=== PATIENT | female | born 1990 | race Caucasian/White ===

== ENCOUNTER 2017-10-03 15:54 | Emergency (ER) | payer MEDICAID ==
--- NOTE | 2017-10-03 16:14 | EDPHY ---
H & P Time Seen by Provider: 10/03/17 15:58 HPI/ROS: CHIEF COMPLAINT: Paranoia HISTORY OF PRESENT ILLNESS: The patient is a 27 y/o female with a history of schizophrenia and bipolar disorder arriving via AMS from [facility] for paranoia. Patient was seen at [facility] and referred to the emergency department for medical clearance and for placement. She was seen at [facility] earlier this fall, where they gave her medications for her mental illnesses. 3 weeks ago she ran out of these medications and did not refill them. For the past week she has felt like she is "processing things different than others". States she is having "feeling" hallucinations and is able to have "mind feel". Today she was at [facility] when they advised her to go to the ED for her paranoia. She also feels dehydrated. In the past she was prescribed [place] for her bipolar disorder, but took herself off of it. Admits to smoking and drinking today. No illicit drug use. Does not feel like people are out to get her. Denies suicidal or homicidal ideation. Denies seeing a therapist or psychiatrist recently. No fever, chills, chest pain, shortness of breath, palpitations, abdominal pain, vomiting, diarrhea, urinary complaints, headache, lightheadedness. REVIEW OF SYSTEMS: Aside from elements discussed in the HPI, a comprehensive 10-point review of systems was reviewed and is negative. PAST MEDICAL HISTORY: Schizophrenia, bipolar disorder, anxiety SOCIAL HISTORY: Lives in [place], tobacco and alcohol use VITAL SIGNS: Reviewed by me GENERAL: Well-developed, well-nourished, resting comfortably in no respiratory distress. HEENT: Atraumatic. Eyes: No icterus, no injection. Mouth: moist mucous membranes. No erythema or lesions. Neck: supple with no adenopathy. LUNGS: Clear to auscultation bilaterally, no wheezes, rhonchi or rales. CARDIAC: Regular rate and rhythm, no rubs, murmurs or gallops. ABDOMEN: Soft, nontender, nondistended, bowel sounds normal. BACK: No CVA tenderness. EXTREMITIES: No trauma. No edema. Range of motion is normal throughout. NEURO: Alert and oriented, grossly nonfocal. SKIN: Warm and dry, no rash. PSYCHIATRIC: Controlled thought, thought disturbance, paranoid, no agitation. Portions of this note were transcribed by a emergency medical technician. I personally performed a history, physical exam, medical decision making, and confirmed accuracy of information the transcribed note. (Kimberli Kathleen) Constitutional: Initial Vital Signs Temperature (C) 37.0 C 10/03/17 16:35 Heart Rate 100 10/03/17 16:35 Respiratory Rate 16 10/03/17 16:35 Blood Pressure 167/98 H 10/03/17 16:35 O2 Sat (%) 97 10/03/17 16:35 O2 Delivery Mode Room Air Allergies/Adverse Reactions: No Known Allergies Allergy (Unverified 10/03/17 16:30) Home Medications: Medication Instructions Recorded Divalproex 10/03/17 Risperdal 10/03/17 traZODone 10/03/17 Medical Decision Making ED Course/Re-evaluation: The patient is a 27 y/o female with a history of mental illness, arriving via EMS from [facility], for paranoia. On exam she has controlled thought, thought disturbance, and paranoia. Patient was medically cleared. [facility] was contacted. They will begin a bed search. [id number]: Reassessed patient, her nurse reports that [facility] is trying to find a placement for her. She has been cooperative and calm. She understands that she needs to stay here while her placement with [facility] is pending. Her care has been turned over to Dr. Patino at shift change, pending placement. (Kimberli Kathleen) 7:00 a.m.- Patient has been stable throughout my shift. She is currently awaiting placement. Anticipate the case will be signed out to Dr. Ann pending placement. (Gisele Cheema) I assumed care of this patient from Dr. Cheema at 7 AM. Placement obtained, EMTALA signed, transfer arranged. (Matilde Ann) Differential Diagnosis: Differential diagnoses for the patient's symptom complex was considered including but not limited to schizophrenia, bipolar disorder, acute paranoia, acute psychosis, drug or alcohol abuse, drug or alcohol withdrawal. (Kimberli Kathleen) - Data Points Laboratory Results: Laboratory Results 10/03/17 16:40 10/03/17 16:40 Medications Given: Discontinued Medications Nicotine (Nicoderm Cq) 14 mg TD EDNOW ONE Stop: 10/05/17 11:09 Last Admin: 11/14/17 11:29 Dose: 14 mg Departure - Departure Disposition: [facility] Clinical Impression: Paranoid Condition: Good Referrals: Patient,NotPresent [Unknown] - As per Instructions Report Scribed for: Kimberli Kathleen Report Scribed by: Bebe Davalos Date of Report: 10/03/17 Time of Report: 16:17
[2017-10-03 16:52] LABS: % IMMATURE GRANULYOCYTES 0.5 % (0.0-1.1); ABSOLUTE IMMATURE GRANULOCYTES 0.04 10^3/uL (0.00-0.10); ADD DIFF? NO; ADD MORPH? NO; ADD SCAN? NO; ATYPICAL LYMPHOCYTE FLAG 10 (0-99); FRAGMENT RBC FLAG 0 (0-99); HEMATOCRIT 38.9 % (38.0-47.0); HEMOGLOBIN 13.3 g/dL (12.6-16.3); LEFT SHIFT FLG 0 (0-99); LIPEMIA HEMOLYSIS FLAG 90 (0-99); MEAN CELL HEMOGLOBIN 26.1 pg (27.9-34.1); MEAN CELL HEMOGLOBIN CONCENTR. 34.2 g/dL (32.4-36.7); MEAN CELL VOLUME 76.4 fL (81.5-99.8); PLATELET CLUMPS FLAG 0 (0-99); PLATELET COUNT 256 10^3/uL (150-400); RED BLOOD CELL COUNT 5.09 10^6/uL (4.18-5.33); RED CELL DISTRIBUTION WIDTH 13.4 % (11.5-15.2)
[2017-10-03 17:11] LABS: ANION GAP 14 mEq/L (8-16); CALCIUM 9.2 mg/dL (8.5-10.4); CARBON DIOXIDE 25 mEq/l (22-31); CHLORIDE 101 mEq/L (97-110); CREATININE 0.8 mg/dL (0.6-1.0); GLOMERULAR FILTRATION RATE > 60; GLUCOSE 85 mg/dL (70-100); POTASSIUM 3.6 mEq/L (3.5-5.2); SALICYLATE < 1.0 mg/dL (2.0-20.0); SODIUM 140 mEq/L (134-144)
[2017-10-03 23:31] VITALS: TEMP 97.9
[2017-10-04 12:51] VITALS: BP 142/68; PULSE 84; RESP 12; O2SAT 95
[2017-10-05] MEDS ORDERED: NICOTINE 14 MG/24 HR PATCH TD ONE (11:08)
== END 2017-10-04 12:49 | disposition short-term general hospital (02) ==
LOC: EDUNIT#
DX: F22 Delusional disorders (principal)
CPT/HCPCS: 80305; G0480

== ENCOUNTER 2019-02-11 10:19 | Emergency (ER) | payer MEDICAID ==
--- NOTE | 2019-02-11 10:54 | EDPHY ---
General Time Seen by Provider: 02/11/19 10:29 Narrative: CLINICAL IMPRESSION: Acute anxiety, possible early manic episode ASSESSMENT/PLAN: 28-year-old female with reported past medical history of bipolar disease, recently started on medications 3 days ago, presents to the ED voluntarily with her and family for concerns of increased anxiety, pacing, trouble sleeping, and feeling as though medications are not working. Initially patient told me she had no physical complaints, denied intoxication and illicit drug abuse and that she was not concerned about . She was medically cleared and evaluated by [facility] provider whom she told "I am just worried that I am and not able to take my medications". She is established with [facility], reportedly has an appointment in 2 months, and was unaware of the fact that she could go to their 13/06 walk-in crisis Center. She denies suicidal and homicidal ideations, has no reports of hallucinations or delusions, is not acting paranoid, does not appear gravely disabled, and has no clinical indication for M1 hold or inpatient psychiatric placement. She is very anxious for discharge and does not wish to wait urine test. We will contact her if this is positive. I encouraged her to restart her medications as prescribed and follow up with [facility] tomorrow. Patient and family are comfortable with this plan and they feel comfortable bringing the patient home. Warning signs return to ED sooner outlined and discharge. DIFFERENTIAL DX: Differential includes but not limited to, acute/chronic psychosis, severe depression, suicidal or homicidal ideations, grave disability, failure to thrive , medication noncompliance, medication side effect, alcohol intoxication and illicit drug use, metabolic disturbance, electrolyte imbalance ED PROCEDURES: See lab and/or imaging results below ED COURSE: 10:45 a.m.:. Patient seen and assessed by myself. Calm, cooperative, here voluntarily. Plan for urine and breath and TLC evaluation 11:45 a.m.: TLC provider here to evaluate patient 12:00 p.m.:. Patient apparently told TLC provider that she is concerned she could be and that she would like a test to make sure that she can still take her medications. It is not felt that patient meets criteria for M1 hold or inpatient admission. She is safe, family feel safe taking her home, she is not a threat to herself or others. CHIEF COMPLAINT: Possible bipolar HPI: 28-year-old [place]ad[place] female presents to the emergency department with her for concerns of possible bipolar and anxiety. Patient reports that she was diagnosed with bipolar disease in 2014, prescribed Risperdal and trazodone by a [facility] but only took this for 1 month and reports her symptoms seem to improve. Over the last week and a half she has become symptomatic again with bouts of anxiety, difficulty sleeping, pacing around the house, and feeling confused. They were seen at [facility] 4 days ago and prescribed Risperdal and trazodone by the ED physician. They have a follow-up appointment with [facility] in 2 months. Patient states the medication it does not seem to be helping. She states the only thing that does seem to help is taking a couple sips of alcohol with her medication. She does not drink alcohol heavily. Patient also reports suffering from depression after delivering both her 7-year-old daughter and her [id number] son. Apparently shortly after each delivery, she was admitted to [facility] and prescribed an unknown medication that she also took for only 1 month. However she reports her was relatively uncomplicated and she feels as though things are going well at home now. Her agrees with this. 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 She denies illicit drug abuse. She reports a family history of mental health illness but is unable to expand on this. She is not feeling suicidal or homicidal. PAST MEDICAL HISTORY: Reported bipolar disease, schizophrenia, depression See nurse/triage notes for additional history if applicable Pertinent Past Surgical History: None reported Family History: Possible family history of mental health illness Social History: , here with her , has 2 children age 7 and 19 months, currently on Medicaid, previously followed by [facility]. REVIEW OF SYSTEMS: All other systems negative Constitutional: No fever, no chills, appetite change. Eyes: No discharge, vision change ENT: No sore throat, congestion, ear pain. Cardiovascular: No chest pain, no palpitations. Respiratory: No cough, no shortness of breath. Gastrointestinal: No abdominal pain, no vomiting, diarrhea. Genitourinary: No hematuria, dysuria, flank pain, pelvic pain Musculoskeletal: No back pain, joint swelling, joint pain, myalgias. Skin: No rashes, color change. Neurological: No headache, dizziness, weakness, positive for confusion. PHYSICAL EXAM: General Appearance: Alert, oriented, appropriate, cooperative, NAD, well hydrated, non-toxic appearing, tachycardic, hypertensive, answering all questions no hypoxia. HEENT: Oropharynx clear is no erythema or exudates, no tonsillar hypertrophy or asymmetry. Dentition without abnormality.] Eyes: PERRLA, no acute vision change, nystagmus, swelling, discharge, pain or photosensitivity. Conjunctiva pink, no pallor or injection Neck: Supple, nontender, no lymphadenopathy, no midline pain, FROM, no meningismus. Respiratory: There are no retractions, lungs are clear to auscultation. Cardiac: Tachycardic, regular rhythm, no murmurs or gallops. Gastrointestinal: [Abdomen is soft, nontender Neurological: [ Alert and oriented x 3 Skin: Warm, dry, no rashes, no nodules on palpation. Psychiatric: Patient is oriented X 3, there is no agitation. Intermittently confused about my questions, states that she is but that her is not her brother. Denies SI and HI. MEDICAL DECISION MAKING: Patient was seen independently. Secondary supervising physician at time of evaluation was Dr. Pedersen . Diagnosis: Anxiety, possible early manic episode with a history of bipolar disease . New, requires workup Summary: See Assessment and Plan for summary of ED visit Clinical lab tests: ordered / reviewed. Discussed patient with another provider: [facility] provider Patient Progress: Stable for discharge. - History Smoking Status: Current every day smoker - Objective Vital Signs: Initial Vital Signs Temperature (C) 36.6 C 02/11/19 10:22 Heart Rate 117 H 02/11/19 10:22 Respiratory Rate 16 02/11/19 10:22 Blood Pressure 153/113 H 02/11/19 10:22 O2 Sat (%) 98 02/11/19 10:22 O2 Delivery Mode Room Air Allergies/Adverse Reactions: No Known Allergies Allergy (Unverified 10/03/17 16:30) Home Medications: Medication Instructions Recorded Divalproex 10/03/17 Risperdal 10/03/17 traZODone 10/03/17 Laboratory Results: 02/11/19 02/11/19 11:01 11:01 Urine Test NEGATIVE Urine Opiates Screen NEGATIVE (NEGATIVE) Urine Barbiturates NEGATIVE (NEGATIVE) Ur Phencyclidine Scrn NEGATIVE (NEGATIVE) Ur Amphetamine Screen NEGATIVE (NEGATIVE) U Benzodiazepines Scrn NEGATIVE (NEGATIVE) Urine Cocaine Screen NEGATIVE (NEGATIVE) U Marijuana (THC) Screen NEGATIVE (NEGATIVE) Departure - Departure Disposition: Home, Routine, Self-Care Clinical Impression: Anxiety Condition: Good Instructions: Anxiety (ED) Additional Instructions: DISCHARGE INSTRUCTIONS FROM YOUR DOCTOR Thank you for visiting our emergency department today. You were treated by a physician marketing communications assistant today and your case was reviewed with our ED Attending physician. Please keep in mind that discharge from the emergency department does not mean that there is nothing wrong - it simply means that we have not identified an emergency condition that requires further evaluation or treatment in the hospital. You should always plan to follow up with primary care for re- evaluation of your condition in the next 2-3 days. If you have been referred to a specialist, please call as soon as possible (today or tomorrow) to schedule your follow up appointment at the appropriate time. YOU MET WITH OUR PSYCH TRIAGE PROVIDER TODAY. YOUR URINE TEST IS NEGATIVE. PLEASE TAKE THE MEDICATIONS THAT WERE PRESCRIBED TO YOU AND GO TO THE WALK IN CRISIS CENTER AT [facility] TOMORROW. PLEASE RETURN TO THE ER IMMEDIATELY IF YOU FEEL UNSAFE TO YOURSELF OR OTHERS, FEEL SUICIDAL OR HOMICIDAL, HAVING AUDITORY OR VISUAL HALLUCINATIONS, FEELING PARANOID OR HAVING WORSENING SYMPTOMS OR ANY OTHER CONCERNS. People present with illnesses and injuries in different ways, and it is always possible that we have missed something. You may always return for re-evaluation if symptoms worsen or if they are not improving or if you develop new/different symptoms. Again, thank you for choosing our emergency department. We hope that you feel better. Referrals: NONE *PRIMARY CARE P,. [Primary Care Provider] - As per Instructions [facility] [Clinic] - 1 day without fail
[2019-02-11 12:17] VITALS: BP 146/97
== END 2019-02-11 12:23 | disposition home or self-care (01) ==
DX: F41.9 Anxiety disorder, unspecified (principal); F31.9 Bipolar disorder, unspecified; Z79.899 Other long term (current) drug therapy
CPT/HCPCS: 80305

== ENCOUNTER 2019-02-12 11:22 | Emergency (ER) | payer MEDICAID ==
--- NOTE | 2019-02-12 11:32 | EDPHY ---
H & P Time Seen by Provider: 02/12/19 11:26 HPI/ROS: CHIEF COMPLAINT: Bipolar HISTORY OF PRESENT ILLNESS: Patient is a 28-year-old female with a history of bipolar who is currently experiencing a manic episode. She presented to the walk-in clinic [facility]. She states that she has not slept well in 2 weeks. She states that she is occasionally hearing voices. She was evaluated there and placed on a hold and brought here for medical clearance. They have already began looking for placement. She denies suicidal homicidal ideation. She denies recent substance abuse. Severity: Moderate Modifying factors: None REVIEW OF SYSTEMS: Constitutional: denies: chills, fever, recent illness, recent injury EENTM: denies: blurred vision, double vision, nose congestion Respiratory: denies: cough, shortness of breath Cardiac: denies: chest pain, irregular heart rate, lightheadedness, palpitations Gastrointestinal/Abdominal: denies: abdominal pain, diarrhea, nausea, vomiting, blood streaked stools Genitourinary: denies: dysuria, frequency, hematuria, pain Musculoskeletal: denies: joint pain, muscle pain Skin: denies: lesions, rash, jaundice, bruising Neurological: denies: headache, numbness, paresthesia, tingling, dizziness, weakness Hematologic/Lymphatic: denies: blood clots, easy bleeding, easy bruising Immunologic/allergic: denies: HIV/AIDS, transplant 10 systems reviewed and negative except as noted EXAM: GENERAL: Well-appearing, well-nourished and in no acute distress. HEAD: Atraumatic, normocephalic. EYES: Pupils equal round and reactive to light, extraocular movements intact, sclera anicteric, conjunctiva are normal. ENT: TMs normal, nares patent, oropharynx clear without exudates. Moist mucous membranes. NECK: Normal range of motion, supple without lymphadenopathy or JVD. LUNGS: Breath sounds clear to auscultation bilaterally and equal. No wheezes rales or rhonchi. HEART: Regular rate and rhythm without murmurs, rubs or gallops. ABDOMEN: Soft, nontender, normoactive bowel sounds. No guarding, no rebound. No masses appreciated. BACK: No CVA tenderness, no spinal tenderness, step-offs or deformities EXTREMITIES: Normal range of motion, no pitting or edema. No clubbing or cyanosis. NEUROLOGICAL: Cranial nerves II through XII grossly intact. Normal speech, normal gait. 5/5 strength, normal movement in all extremities, normal sensation , normal reflexes PSYCH: Rapid speech, no parent hallucination SKIN: Warm, dry, normal turgor, no visible rashes or lesions. Source: Patient Exam Limitations: No limitations - Personal History Tetanus Vaccine Date: 2016 - Medical/Surgical History Hx Asthma: No Hx Chronic Respiratory Disease: No Hx Diabetes: No Hx Cardiac Disease: No Hx Renal Disease: No Hx Cirrhosis: No Hx Alcoholism: No Hx HIV/AIDS: No Hx Splenectomy or Spleen Trauma: No Other PMH: bipolar, schizophrenia, paranoia, anxiety, depression - Family History Significant Family History: No pertinent family hx - Social History Smoking Status: Current every day smoker Alcohol Use: Sober Drug Use: None Constitutional: Initial Vital Signs Temperature (C) 36.9 C 02/12/19 11:22 Heart Rate 97 02/12/19 11:22 Respiratory Rate 16 02/12/19 11:22 Blood Pressure 132/100 H 02/12/19 11:22 O2 Sat (%) 96 02/12/19 11:22 O2 Delivery Mode Room Air Allergies/Adverse Reactions: No Known Allergies Allergy (Unverified 10/03/17 16:30) Home Medications: Medication Instructions Recorded Risperdal 10/03/17 traZODone 10/03/17 Medical Decision Making ED Course/Re-evaluation: 12:45 p.m. the patient is medically cleared. Awaiting psychiatric placement. 12:15 p.m. patient accepted at [facility] by Dr. Serna. Transfer paperwork completed. Differential Diagnosis: Partial list of the Differential diagnosis considered include but were not limited to; bipolar, schizophrenia, substance abuse and although unlikely based on the history and physical exam, I also considered head injury, infection. I discussed these differential diagnoses and the plan with the patient as well as the usual and expected course. The patient understands that the diagnosis is provisional and that in medicine we are not always correct and that further workup is often warranted. Usual and customary warnings were given. All of the patient's questions were answered. The patient was instructed to return to the emergency department should the symptoms at all worsen or return, otherwise to followup with the physician as we discussed. - Data Points Laboratory Results: Laboratory Results 02/12/19 11:35 02/12/19 11:35 Medications Given: Discontinued Medications Olanzapine (Zyprexa Zydis) 10 mg PO EDNOW ONE Stop: 02/12/19 14:28 Last Admin: 02/12/19 14:30 Dose: 10 mg Departure - Departure Disposition: Other Psych, Not [place] Clinical Impression: Bipolar affective psychosis Qualifiers: Active/Remission status: currently active Current bipolar episode type: mixed Current episode severity: moderate Qualified Code(s): F31.62 - Bipolar disorder , current episode mixed, moderate Condition: Fair Referrals: NONE *PRIMARY CARE P,. [Primary Care Provider] - As per Instructions
[2019-02-12 11:51] LABS: PLATELET COUNT 342 10^3/uL (150-400)
[2019-02-12] MEDS ORDERED: OLANZapine DISINTEGR 10 MG TAB PO ONE (14:27)
[2019-02-12 17:02] VITALS: BP 138/90
== END 2019-02-12 17:02 ==
LOC: EDUNIT#
DX: F31.62 Bipolar disorder, current episode mixed, moderate (principal)
CPT/HCPCS: 80305; G0480